=== PATIENT | male | born 1965 | race Caucasian/White ===

== ENCOUNTER 2016-08-18 13:39 | Emergency (ER) | payer OTHER ==
[~2016-08-18] VITALS: Ht 182.9 cm; Wt 123.4 kg
[~2016-08-18 13:39] MED LIST: ASPI-875 PO; ATEN25TA PO; DICY20TA57 PO; FEBU40TA PO; MAGN400C PO; NIAC400C2 PO; ONDAN4ODT PO; PNT40TEC PO; TRM50T PO; WARF7.5T PO; WRF10T PO
[2016-08-18 13:59] LABS: BILIRUBIN,URINE NEGATIVE (NEGATIVE); KETONES,URINE NEGATIVE (NEGATIVE); LEUKOCYTE ESTERASE ,URINE 1+ (NEGATIVE); NITRITE,URINE NEGATIVE (NEGATIVE); PH,URINE 7 (5-9); PROTEIN,URINE 3+ (NEGATIVE); UROBILINOGEN,URINE NORMAL (NORMAL)
[2016-08-18 14:01] LABS: BASOPHILS % (AUTO) 0 % (0-10); EOSINOPHILS # (AUTO) 0.1 10^3/uL (0.0-0.3); EOSINOPHILS % (AUTO) 2 % (0-10); LYMPHOCYTES # (AUTO) 1.9 X 10^3 (1.0-4.0); LYMPHOCYTES % (AUTO) 34 % (12-44); MEAN CORPUSCULAR HEMOGLOBIN 33 PG (25-34); MEAN CORPUSCULAR HGB CONC 37 G/DL (32-36); MEAN CORPUSCULAR VOLUME 89 FL (80-99); MEAN PLATELET VOLUME 10.4 FL (7.4-10.4); MONOCYTES # (AUTO) 0.5 X 10^3 (0.0-1.0); MONOCYTES % (AUTO) 9 % (0-12); NEUTROPHILS # (AUTO) 3.1 X 10^3 (1.8-7.8); NEUTROPHILS % (AUTO) 55 % (42-75); PLATELET COUNT 167 10^3/uL (130-400); RED BLOOD COUNT 4.91 10^6/uL (4.35-5.85); RED CELL DISTRIBUTION WIDTH 12.8 % (10.0-14.5); WHITE BLOOD COUNT 5.6 10^3/uL (4.3-11.0)
[2016-08-18 14:08] LABS: WBC,URINE 0-2 /HPF
[2016-08-18 14:18] LABS: ALBUMIN 4.3 G/DL (3.2-4.5); BILIRUBIN,TOTAL 1.6 MG/DL (0.1-1.0); CALCIUM 8.9 MG/DL (8.5-10.1); CREATININE SERUM 1.28 MG/DL (0.60-1.30); TOTAL PROTEIN 6.7 G/DL (6.4-8.2)
--- NOTE | 2016-08-18 14:28 | Diagnostic Imaging Report ---
PROCEDURE: CT urinary tract, rule out kidney stone. TECHNIQUE: Multiple contiguous axial images were obtained through the abdomen and pelvis without the use of intravenous contrast. INDICATION: Bilateral flank pain with hematuria. COMPARISON: 07/08/2012. FINDINGS: Lung bases are clear. There is a 5 mm calculus in the lower pole calyx of the right kidney. There is also a 3 mm calculus in the ureter at the UPJ causing mild hydronephrosis. The left kidney shows a large cyst off the upper pole which was present previously. No calculi are present. No hydronephrosis is seen on the left. The bladder appears normal. Bladder is decompressed. No calculi are demonstrated in the bladder. The liver appears normal. Gallbladder is absent. Bile ducts are not dilated. The pancreas and spleen are normal. Adrenal glands are normal. Aorta shows no evidence of atherosclerotic disease or aneurysm. The stomach and small bowel are not distended. The colon shows very little stool or gas present. There are scattered diverticula with no evidence of diverticulitis. There is no free air free fluid. IMPRESSION: 1. There is a 3 mm calculus causing mild hydronephrosis of the right kidney at the UPJ. There is also a 5 mm calculus in lower pole calyx of the right kidney. 2. Cyst off of the upper pole of the left kidney measuring 4.5 cm which was present on previous study. No calculi or hydronephrosis on the left. 3. Diverticulosis without evidence of diverticulitis. Dictated by: Dictated on workstation # [id number]
[2016-08-18 14:30] LABS: INR 5.4 (0.8-1.4); PROTHROMBIN TIME PATIENT 49.9 SEC (12.2-14.7)
--- NOTE | 2016-08-18 14:41 | Diagnostic Imaging Report ---
INDICATION: KUB. Comparison: Concurrent CT scan from the same day is reviewed. FINDINGS: There are right flank calcifications measuring 4 mm medial to the renal silhouette probably correlating with the UPJ stone seen on CT scan and 4 mm lower pole right kidney stone seen. The left kidney demonstrate no stones. No other urinary tract stones identified in the mid to lower abdomen. IMPRESSION: 4 mm right UPJ and 4 mm lower pole right kidney stones. Dictated by: Dictated on workstation # [id number]
--- NOTE | 2016-08-18 15:13 | ED GU-Male ---
General Chief Complaint: -Male Stated Complaint: BLOOD IN URINE Nursing Triage Note: PT HAS CLEO BLOOD IN URINE. STARTED LAST PM, DENIES PAIN AT THIS X Source: patient History of Present Illness Time seen by provider: 13:50 Initial Comments PT ARRIVES VIA POV FROM [facility] PT HAS HAD HEMATURIA SINCE LAST PM C/O DIFFUSE LOWER ABDOMINAL PRESSURE, BUT NO DIFFICULTY URINATING NO FEVER NO NAUSEA/VOMITING NO BACK PAIN PT IS ON COUMADIN FOR VALVULAR HEART DISEASE. HAS NOT HAD PROTIME CHECKED IN A MONTH NO BRUISING ANYWHERE OR BLEEDING FROM GUMS OR BLACK/BLOODY/TARRY STOOLS. PT DOES HAVE A HISTORY OF KIDNEY STONES PCP: DR. ABREU UROLOGY: DR. QUINTANA FISH PEDDLER: DR. LEE--HAS NOT SEEN RECENTLY Allergies and Home Medications Allergies Coded Allergies: No Known Drug Allergies (Unverified , 11/25/08) Home Medications Aspirin 81 Mg Tablet.dr 81 MG PO DAILY (Reported) Atenolol 25 Mg Tablet 1 EACH PO DAILY (Reported) Febuxostat 40 Mg Tablet 40 MG PO DAILY (Reported) Hydrocodone/Acetaminophen 1 Each Tablet #20 1 EACH PO Q4H Prescribed by: TRACEY QUINONES on 08/18/161517 Magnesium Oxide 400 Mg Capsule 400 MG PO DAILY (Reported) Niacin 400 Mg Capsule.sa 400 MG PO DAILY (Reported) Nitrofurantoin Monohyd/M-Cryst 100 Mg Capsule #20 100 MG PO BID Prescribed by: TRACEY QUINONES on 08/18/161517 Tamsulosin HCl 0.4 Mg Cap #10 0.4 MG PO DAILY Prescribed by: TRACEY QUINONES on 08/18/161517 Warfarin Sod 7.5 Mg Tablet 1 EACH PO through Wed (Reported) Warfarin Sod 10 Mg Tab 10 MG PO Mondays (Reported) Constitutional: no symptoms reportedNo chills, No diaphoresis, No dizziness, No fever, No malaise, No weakness Respiratory: no symptoms reported Cardiovascular: no symptoms reported Gastrointestinal: see HPI abdominal painNo nausea, No vomiting Genitourinary: see HPIdenies burning, denies dysuria, denies frequency, denies flank pain, hematuriadenies pain, denies urgency Musculoskeletal: no symptoms reportedNo back pain Skin: no symptoms reported Psychiatric/Neurological: No Symptoms Reported Endocrine: No Symptoms Reported Hematologic/Lymphatic: See HPI Past Wwcecsn-Afuzfx-Cuxubu Hx Patient Social History Alcohol Use: Denies Use Recreational Drug Use: No Smoking Status: Never a Smoker Type Used: Cigarettes Recent Foreign Travel: No Contact w/Someone Who Travel: No Recent Infectious Disease Expo: No Immunizations Up To Date Date of Influenza Vaccine: Feb 29, 2016 Surgeries HX Surgeries: Yes Surgeries: Valve Replacement Respiratory Hx Respiratory Disorders: Yes Respiratory Disorders: Sleep Apnea Cardiovascular Hx Cardiac Disorders: Yes (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) Cardiac Disorders: Hypertension, Valvular Heart Disease Neurological Hx Neurological Disorders: No Reproductive System Hx Reproductive Disorders: No Sexually Transmitted Disease: No HIV/AIDS: No Genitourinary Hx Genitourinary Disorders: Yes (stones) Genitourinary Disorders: Kidney Stones Gastrointestinal Hx Gastrointestinal Disorders: Yes Gastrointestinal Disorders: Gall Bladder Disease Musculoskeletal Hx Musculoskeletal Disorders: Yes Musculoskeletal Disorders: Gout Endocrine Hx Endocrine Disorders: No HEENT HX ENT Disorders: No Cancer Hx Cancer: No Psychosocial Hx Psychiatric Problems: No Integumentary HX Skin/Integumentary Disorder: No Blood Transfusions Hx Blood Disorders: No Physical Exam Vital Signs Vital Sign - Last 12Hours 08/18/16 13:45 Temp 97.9 Pulse 60 Resp 18 B/P 125/80 Pulse Ox 94 Capillary Refill : Less Than 3 Seconds General Appearance: WD/WN no apparent distress HEENT: PERRL/EOMI Neck: normal inspection Cardiovascular: normal peripheral pulses regular rate, rhythm no edema systolic murmur (06/05) Respiratory: normal breath sounds no respiratory distress no accessory muscle use Gastrointestinal: normal bowel sounds non tender soft no organomegaly Back: no CVA tenderness Extremities: normal inspection 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 no motor/sensory deficits alert normal mood/affect oriented x 3 Skin: normal color warm/dryNo ecchymosis Focused Exam Lactic Acid Level Laboratory Tests Test 08/18/16 13:45 Alanine Aminotransferase (ALT/SGPT) 28U/L (0-55) Albumin 4.3G/DL (3.2-4.5) Alkaline Phosphatase 58U/L (40-136) Anion Gap 9MMOL/L (5-14) Aspartate Amino Transf (AST/SGOT) 26U/L (5-34) BUN/Creatinine Ratio 13 Blood Urea Nitrogen 16MG/DL (7-18) Calcium Level 8.9MG/DL (8.5-10.1) Carbon Dioxide Level 22MMOL/L (21-32) Chloride Level 109MMOL/L (98-107) H Creatinine 1.28MG/DL (0.60-1.30) Estimat Glomerular Filtration Rate 59 Glucose Level 112MG/DL (70-105) H Potassium Level 4.0MMOL/L (3.6-5.0) Sodium Level 140MMOL/L (135-145) Total Bilirubin 1.6MG/DL (0.1-1.0) H Total Protein 6.7G/DL (6.4-8.2) Progress/Results/Core Measures Results/Orders Lab Results Laboratory Tests Test 08/18/16 13:45 08/18/16 14:05 Range/Units Alanine Aminotransferase (ALT/SGPT) 28 0-55 U/L Albumin 4.3 3.2-4.5 G/DL Alkaline Phosphatase 58 40-136 U/L Anion Gap 9 5-14 MMOL/L Aspartate Amino Transf (AST/SGOT) 26 5-34 U/L BUN/Creatinine Ratio 13 Basophils # (Auto) 0.0 0.0-0.1 10^3/uL Basophils (%) (Auto) 0 0-10 % Blood Urea Nitrogen 16 7-18 MG/DL Calcium Level 8.9 8.5-10.1 MG/DL Carbon Dioxide Level 22 21-32 MMOL/L Chloride Level 109 H 98-107 MMOL/L Creatinine 1.28 0.60-1.30 MG/DL Eosinophils # (Auto) 0.1 0.0-0.3 10^3/uL Eosinophils (%) (Auto) 2 0-10 % Estimat Glomerular Filtration Rate 59 Glucose Level 112 H 70-105 MG/DL Hematocrit 44 40-54 % Hemoglobin 16.1 13.3-17.7 G/DL Lymphocytes # (Auto) 1.9 1.0-4.0 X 10^3 Lymphocytes (%) (Auto) 34 12-44 % Mean Corpuscular Hemoglobin 33 25-34 PG Mean Corpuscular Hemoglobin Concent 37 H 32-36 G/DL Mean Corpuscular Volume 89 80-99 FL Mean Platelet Volume 10.4 7.4-10.4 FL Monocytes # (Auto) 0.5 0.0-1.0 X 10^3 Monocytes (%) (Auto) 9 0-12 % Neutrophils # (Auto) 3.1 1.8-7.8 X 10^3 Neutrophils (%) (Auto) 55 42-75 % Platelet Count 167 130-400 10^3/uL Potassium Level 4.0 3.6-5.0 MMOL/L Red Blood Count 4.91 4.35-5.85 10^6/uL Red Cell Distribution Width 12.8 10.0-14.5 % Sodium Level 140 135-145 MMOL/L Total Bilirubin 1.6 H 0.1-1.0 MG/DL Total Protein 6.7 6.4-8.2 G/DL Urine Bacteria NEGATIVE /HPF Urine Bilirubin NEGATIVE NEGATIVE Urine Casts NONE /LPF Urine Clarity BLOODY H Urine Color RED H Urine Crystals NONE /LPF Urine Culture Indicated NO Urine Glucose (UA) NEGATIVE NEGATIVE Urine Ketones NEGATIVE NEGATIVE Urine Leukocyte Esterase 1+ H NEGATIVE Urine Mucus NEGATIVE /LPF Urine Nitrite NEGATIVE NEGATIVE Urine Protein 3+ H NEGATIVE Urine RBC TNTC H /HPF Urine RBC (Auto) 5+ H NEGATIVE Urine Specific [place] 1.020 1.016-1.022 Urine Squamous Epithelial Cells NONE /HPF Urine Urobilinogen NORMAL NORMAL MG/DL Urine WBC 0-2 /HPF Urine pH 7 5-9 White Blood Count 5.6 4.3-11.0 10^3/uL Activated Partial Thromboplast Time 56 H 24-35 SEC INR Comment 5.4 *H 0.8-1.4 Prothrombin Time 49.9 *H 12.2-14.7 SEC My Orders Orders-TRACEY QUINONES DO Saline Lock/Iv-Start (08/18/16 13:52) Cbc With Automated Diff (08/18/16 13:52) Comprehensive Metabolic Panel (08/18/16 13:52) Protime With Inr (08/18/16 13:52) Partial Thromboplastin Time (08/18/16 13:52) Ua Culture If Indicated (08/18/16 13:52) Abdomen/Kub 1view (08/18/16 13:52) Ct Abd/Pelvis Wo(Kidney Stone) (08/18/16 13:52) Alfuzosin Tablet (Uroxatral Tablet) (08/18/16 15:30) Ketorolac Injection (Toradol Injection) (08/18/16 15:30) Tramadol Tablet (Ultram Tablet) (08/18/16 15:21) Medications Given in ED Current Medications Medications Dose Ordered Sig/Arcenio Route Start Time Stop Time Status Last Admin Dose Admin Ketorolac Tromethamine 30 mg ONCE ONCE IVP 08/18/16 15:30 08/18/16 15:31 DC 08/18/16 15:22 30 MG Vital Signs/I&O Vital Sign - Last 12Hours 08/18/16 08/18/16 13:45 15:43 Temp 97.9 Pulse 60 72 Resp 18 20 B/P 125/80 Pulse Ox 94 99 Blood Pressure Mean: 95 Progress Note : Progress Note PT BEGAN TO C/O MILD RIGHT FLANK PAIN --GIVEN TORADOL, PAIN EASED. Diagnostic Imaging Comments CT ABDOMEN/PELVIS--3 MM STONE RIGHT UPJ WITH MILD HYDRONEPHROSIS, 5 MM LOWER POLE OF RIGHT KIDNEY. LEFT RENAL CYST-UNCHANGED, DIVERTICULAR DISEASE--PER RADIOLOGIST REPORT @ 1434 Reviewed: Reviewed by Me Departure Communication Progress Notes 1440--SPOKE WITH DR. QUINTANA, HE WILL SEE PT ON Wednesday08/24/16 AT 1:[address] ABREU FOR MANAGEMENT OF COUMADIN 1443--ATTEMPTING TO CONTACT DR. ABREU. MESSAGE LEFT ON CELL. HE IS NOT IN OFFICE AT THIS TIME. 1504--CALLED DR. LEE'S OFFICE, HE IS NOT IN OFFICE 1505--CALLED DR. ABREU'S OFFICE, APPOINTMENT MADE FOR TOMORROW AT 11:00 AM 1515--SPOKE WITH DR. ABREU. HE WILL SEE PT TOMORROW SCHEDULED. Impression Impression: Primary Impression: Right ureteral calculus Additional Impressions: Excessive anticoagulation Gross hematuria Disposition: HOME, SELF-CARE Condition: Improved Departure-Patient Inst. Referrals: CARMEN ABREU DO (PCP/Family) Primary Care Physician JUDY QUINTANA MD Patient Instructions: Anti-Clotting Medicines: Warfarin (Coumadin), Kidney Stones (DC) Add. Discharge Instructions: LOTS OF CLEAR LIQUIDS HOLD COUMADIN FOLLOW UP WITH DR. ABREU TOMORROW AT 11:00--CALL TO VERIFY TIME FOLLOW UP WITH DR. QUINTANA ON Wednesday08/24/16 AT 1:00 RETURN TO ER IF SYMPTOMS WORSEN All discharge instructions reviewed with patient and/or family. Voiced understanding. Scripts Hydrocodone/Acetaminophen (Vicodin Es 7.5-300 mg Tablet)1 Each Tablet1 Each PO Q4H Pain #20 TAB Prov:TRACEY QUINONES DO 08/18/16 Tamsulosin HCl (Flomax)0.4 Mg Cap0.4 Mg PO DAILY #10 CAP Prov:TRACEY QUINONES DO 08/18/16 Nitrofurantoin Monohyd/M-Cryst (Macrobid 100 mg Capsule)100 Mg [id number] Mg PO BID #20 CAP Prov:TRACEY QUINONES DO 08/18/16 TRACEY QUINONES DO Aug 18, 2016 15:13
[2016-08-18] MEDS ORDERED: TAMS0.4C98 PO (15:18)
[2016-08-18] MEDS ORDERED: NITR-65 PO (15:18)
[2016-08-18] MEDS ORDERED: HYDR-3456 PO (15:18)
[2016-08-18] MEDS ORDERED: ALFUZOSIN HCL 10 MG TAB (UROXATRAL) PO SCH (15:30)
[2016-08-18] MEDS ORDERED: KETOROLAC 30 MG/ML VIAL IVP ONE (15:30)
[2016-08-18 15:43] VITALS: BP 118/78
== END 2016-08-18 15:43 | disposition home or self-care (01) ==
LOC: EDUNIT# 13:39 → ER 13:40
DX: N20.2 Calculus of kidney with calculus of ureter (principal); N28.1 Cyst of kidney, acquired; R31.0 Gross hematuria; R79.1 Abnormal coagulation profile; K57.30 Diverticulosis of large intestine without perforation or abscess without bleeding; I10 Essential (primary) hypertension; Z79.01 Long term (current) use of anticoagulants; Z79.82 Long term (current) use of aspirin; Z79.899 Other long term (current) drug therapy
CPT/HCPCS: 36415; 74000; 74176; 80053; 81000; 85025; 85610; 85730; 96374

== ENCOUNTER → 2016-08-23 | Outpatient (CLI) | payer OTHER ==
[~2016-08-23] MED LIST changes: +ALPR0.5T7 PO; +FENO45CA2 PO; +HYDR-3456 PO; +HYDR-3875 PO; +LEVO250T11 PO; +NITR-65 PO; +PHEN-640 PO; +TAMS0.4C98 PO
[2016-08-23 12:23] LABS: INR 1.2 (0.8-1.4)
== END ==
LOC: LAB 11:57
PROVIDERS: ATTEND Internal Medicine
DX: R79.1 Abnormal coagulation profile (principal)
CPT/HCPCS: 36415; 85610

== ENCOUNTER → 2016-08-24 | Outpatient (CLI) | payer OTHER ==
--- NOTE | 2016-08-24 12:53 | Diagnostic Imaging Report ---
EXAMINATION: KUB. INDICATION: Right kidney stones. COMPARISON: 08/24/2016. FINDINGS: There is a right flank calcification measuring 6 mm, compatible with a right kidney stone. The previously seen adjacent calcification more medially in the proximal ureter is not seen and, instead, a 5 mm calcification in the right pelvis is noted suggesting migration into the distal ureter near the ureterovesical junction. No left ureteric or left kidney calcification is identified. IMPRESSION: 1. There is a 6 mm lower pole right kidney stone. 2. Suggestion of migration of a 5 mm stone into the right UVJ. Dictated by: Dictated on workstation # [id number]
== END ==
LOC: RAD 11:41
PROVIDERS: ATTEND Internal Medicine
DX: N20.1 Calculus of ureter (principal)
CPT/HCPCS: 74000

== ENCOUNTER 2016-08-25 13:09 | Outpatient (CLI) | payer OTHER ==
[~2016-08-25] VITALS: Ht 182.9 cm; Wt 126.8 kg
[~2016-08-25 13:09] MED LIST changes: -ALPR0.5T7 PO; -FENO45CA2 PO; -HYDR-3875 PO; -LEVO250T11 PO; -PHEN-640 PO
[2016-08-25] MEDS ORDERED: ALPR0.5T7 PO (13:26)
[2016-08-25] MEDS ORDERED: FENO45CA2 PO (13:26)
[2016-08-25 13:30] VITALS: BP 123/79
[2016-08-26] MEDS ORDERED: LEVO250T11 PO (15:08)
[2016-08-26] MEDS ORDERED: PHEN-640 PO (15:08)
[2016-08-26] MEDS ORDERED: HYDR-3875 PO (15:08)
== END 2016-08-25 14:12 | disposition home or self-care (01) ==
LOC: PREOP 13:09
PROVIDERS: ATTEND Urology
DX: Z01.818 Encounter for other preprocedural examination (principal); Z11.2 Encounter for screening for other bacterial diseases; N20.0 Calculus of kidney; N20.1 Calculus of ureter
CPT/HCPCS: 87081

== ENCOUNTER 2016-08-26 08:31 | Day surgery (SDC) | payer OTHER ==
[~2016-08-26] VITALS: Ht 182.9 cm; Wt 126.8 kg
[2016-08-26 08:30] VITALS: BP 126/83
[~2016-08-26 08:31] MED LIST changes: +ALPR0.5T7 PO; +FENO45CA2 PO
[2016-08-26 09:15] LABS: URIC ACID 7.9 MG/DL (2.6-7.2)
--- NOTE | 2016-08-26 09:23 | Diagnostic Imaging Report ---
KUB. INDICATION: Lithotripsy. COMPARISON: 08/24/16. FINDINGS: In the right flank, there is a 6 mm calcification presumably a stone. In the right side of the pelvis, the calcification was seen previously presumed to be in the distal right ureter is not identified on the current exam. No definite left sided stones. IMPRESSION: 1. The previously seen distal left pelvic calcification presumably in the distal right ureter is not identified, possibly passed. Correlate clinically. 2. A 6 mm right kidney stone. Dictated by: Dictated on workstation # [id number]
[2016-08-26] MEDS ORDERED: GENTAMICIN IVPB 80 MG/50 ML 50 ML IV ONE (09:34)
[2016-08-26] MEDS ORDERED: NS IV ONE (09:45)
[2016-08-26] MEDS ORDERED: AMPICILLIN 2 GM/NS 50 ML IVPB IV ONE ×2 (09:45)
[2016-08-26] MEDS ORDERED: GENTAMICIN IV ONE (09:45)
[2016-08-26] MEDS: LACTATED RINGERS 1,000 ML IV PRN ×2 (09:55→12:32)
[2016-08-26] MEDS ORDERED: LACTATED RINGERS 1,000 ML IV PRN (10:38)
--- NOTE | 2016-08-26 10:59 | Progress Note-Pre Operative ---
Pre-Operative Progress Note H&P Reviewed The H&P was reviewed, patient examined and no changes noted. Date H&P Reviewed: Aug 26, 2016 Time H&P Reviewed: 10:59 Pre-Operative Diagnosis: RT URETERAL AND RT RENAL STONES JUDY QUINTANA MD Aug 26, 2016 10:59 am
[2016-08-26] MEDS ORDERED: DEXAMETHASONE PF 10 MG/ML (DECADRON) VIAL ONE (11:36)
[2016-08-26] MEDS ORDERED: proPOfol 200 MG/20 ML (DIPRIVAN) VIAL IV ONE ×2 (11:36→12:36)
[2016-08-26] MEDS ORDERED: fentaNYL INJECTION 100 MCG/2 ML AMP ONE (11:36)
[2016-08-26] MEDS ORDERED: LIDOCAINE PF 2% 10 ML (XYLOCAINE) AMP ONE (11:36)
[2016-08-26] MEDS ORDERED: ONDANSETRON 4 MG/2 ML (SDV) Z0FRAN ONE (11:36)
[2016-08-26] MEDS ORDERED: MIDAZOLAM 2 MG/2 ML (VERSED) VIAL ONE (11:36)
[2016-08-26] MEDS ORDERED: ROCURONIUM 50 MG/5 ML (ZEMURON) VIAL IV ONE (11:36)
[2016-08-26] MEDS ORDERED: LACTATED RINGERS 1,000 ML IV ONE ×2 (11:36→12:36)
[2016-08-26] MEDS ORDERED: SEVOFLURANE (ULTANE) 15 ML INHAL SOLN ONE ×2 (11:36→13:42)
--- NOTE | 2016-08-26 12:00 | Progress Note-Post Operative ---
Post-Operative Progess Note Surgeon (s)/Dining Car Waiter/Waitress (s) Surgeon JUDY QUINTANA MD Dining Car Waiter/Waitress: N/A Pre-Operative Diagnosis RT URETERAL AND RT RENAL STONES Post-Operative Diagnosis SAME Post-Op Procedure Note Date of Procedure: Aug 26, 2016 Name of Procedure Performed: CYSTO, RT URETEROSCOPY WITH STONE LITHO, AND RT ESWL Description of the Procedure: ABOVE Findings of the Procedure RT URETERAL AND RENAL STONES Anesthesia Type GENERAL Estimated blood loss (mL): N/A Specimen(s) collected/removed N/A JUDY QUINTANA MD Aug 26, 2016 12:00 pm
--- NOTE | 2016-08-26 12:02 | Discharge Inst-Urology ---
Discharge Inst-Urology Discharge Medications New, Converted, or Re-newed RX: RX on Chart Patient Instructions/Follow Up Plan Please make appointment to been seen in office in 3 weeks. KUB PRIOR TO IT KUB ON WAY HOME POST ESWL INSTRUCTIONS IN ONE WEEK, IF DOING WELL AND NO BLEEDING, MAY RESUME WARFARIN Increase oral fluids for 48 hours and then as needed. Diet and Activity as tolerated. If questions or concerns contact your physician Or seek help at emergency department. JUDY QUINTANA MD Aug 26, 2016 12:02 pm
[2016-08-26] MEDS ORDERED: ESMOLOL 100 MG/10 ML (BREVIBLOC) VIAL ONE (12:27)
[2016-08-26 13:36] LABS: CALCIUM PARA THYROID HORMONE 9.2 mg/dL (8.5-10.5)
[2016-08-26] MEDS ORDERED: FUROSEMIDE 40 MG/4 ML INJ (LASIX) ONE (13:42)
[2016-08-26] MEDS ORDERED: KETOROLAC 30 MG/ML VIAL ONE (13:42)
[2016-08-26] MEDS ORDERED: NEOSTIGMINE (BLOXIVERZ ) 1 MG/1ML 10 ML VIAL ONE (13:42)
[2016-08-26] MEDS ORDERED: GLYCOPYRROLATE 0.2 MG/ML (ROBINUL) 2 ML VIAL ONE (13:42)
[2016-08-26] MEDS ORDERED: MEPERIDINE (DEMEROL) INJ 50 MG/ML IVP PRN (14:00)
[2016-08-26] MEDS ORDERED: ONDANSETRON 4 MG/2 ML (SDV) Z0FRAN IVP PRN (14:00)
[2016-08-26] MEDS ORDERED: morphine INJ 10 MG/ML 1ML (SYR OR VIAL) IVP PRN (14:00)
[2016-08-26 14:20] VITALS: BP 108/64
[2016-08-26 14:55] VITALS: BP 112/70
[2016-08-26] MEDS ORDERED: PHEN-640 PO (15:08)
[2016-08-26] MEDS ORDERED: HYDR-3875 PO (15:08)
[2016-08-26] MEDS ORDERED: LEVO250T11 PO (15:08)
--- NOTE | 2016-08-26 15:26 | Diagnostic Imaging Report ---
KUB. INDICATION: Post lithotripsy. FINDINGS: Right flank calcification is seen measuring 5 mm. There is a no definite right ureteric stone and evidence of left-sided stones. IMPRESSION: 5 mm right kidney stone seen. Dictated by: Dictated on workstation # [id number]
[2016-08-26 15:30] VITALS: BP 118/74
[2016-08-26 15:35] VITALS: BP 118/74
--- NOTE | 2016-08-27 13:12 | OPERATIVE REPORT ---
PROCEDURE PHYSICIAN: JUDY QUINTANA DATE OF PROCEDURE: 08/26/2016 PREOPERATIVE DIAGNOSIS: Right distal ureteral and right renal stones. POSTOPERATIVE DIAGNOSIS: Right distal ureteral and right renal stones. OPERATION PERFORMED: 1. Cystoscopy. 2. Right ureteroscopy with stone lithotripsy. 3. Right ESWL. SURGEON: Lele. ANESTHESIA: General. COMPLICATIONS: None. PROCEDURE: Under satisfactory general anesthesia, the patient in lithotomy position on the cystoscopy table, the genitalia were prepped and draped in usual sterile fashion. A 23-Yemeni cystoscope was introduced under vision. The anterior urethra was normal. The prostate was nonobstructing but there was a median bar. The bladder was entered, was essentially normal. No foreign body, bladder tumor, stone visualized. Ureteric orifice normal in shape, site and configuration with clear efflux, sluggish on the right side. Using the Foroblique lens, I dilated the right ureteral orifice, intramural portion to a 6.9-Yemeni semirigid ureteroscope, visualized the stone broke it up completely with lithoclast. I injected contrast to make sure there is no harm to the ureter. Did not inject the contrast all the way up to the kidney, so I don't mask a stone in the kidney. I removed the ureteroscope. There was complete emptying of the ureter, again no filling defects. The bladder was evacuated and cystoscope was removed. The patient tolerated the procedure and anesthesia well and was sent to the ESWL bed supine. We had a hard time to localize the right renal stone because of the size of the stone and the size of the patient however, we were able to finally localize it and delivered 1000 shocks at KV of 5, we could not see the stone anymore. The patient received 30 mg of Toradol and 40 mg of Lasix at the end of the procedure. He tolerated the procedure and anesthesia well and was sent to recovery room in stable condition. Job ID: [id number] Dictated Date: 08/26/2016 13:12:16 Cane Weigher Helper Date: 08/27/2016 13:00:45 / xochitl
== END 2016-08-26 15:35 | disposition home or self-care (01) ==
LOC: DELPENDDIS → SDC 08:31
PROVIDERS: ATTEND Urology
DX: N20.1 Calculus of ureter (principal); N20.0 Calculus of kidney; Z12.5 Encounter for screening for malignant neoplasm of prostate; Z11.2 Encounter for screening for other bacterial diseases
CPT/HCPCS: 36415; 74000; 83970; 84100; 84153; 84550; 87081

== ENCOUNTER 2016-09-16 15:56 | Outpatient (RCR) | payer OTHER ==
[2016-09-25 20:38] LABS: STONE RISK AMMONIUM 38 mEq/24hr (14-62); STONE RISK CA OXALATE 3.72 (< 2.00); STONE RISK CALCIUM 330 mg/day (< 250); STONE RISK CITRATE 823 mg/day (> 320); STONE RISK CREATININE 2135 mg/day (800-2000); STONE RISK MAGNESIUM 44 mg/day (> 60); STONE RISK OXALATE 35 mg/day (< 45); STONE RISK PH 6.1 (5.5-7.0); STONE RISK PHOSPHOROUS 975 mg/day (< 1100); STONE RISK POTASSIUM 34 mEq/24hr (19-135); STONE RISK SODIUM 161 mEq/24hr (< 200); STONE RISK SODIUM URATES 1.26 (< 2.00); STONE RISK STRUVITE 0.66 (< 75.00); STONE RISK SULFITE 18 mmol/day (< 30); STONE RISK TOTAL VOLUME 1.26 L/day (> 2.00); STONE RISK URIC ACID 178 mg/day (< 700); STONE RISK URIC ACID SAT 0.47 (< 2.00)
== END 2016-12-15 | disposition home or self-care (01) ==
LOC: LAB 15:56
PROVIDERS: ATTEND Urology
DX: N20.9 Urinary calculus, unspecified (principal)
CPT/HCPCS: 36415; 82140; 82340; 82507; 82570; 83735; 83945; 83986; 84105; 84133; 84300; 84392; 84560

== ENCOUNTER → 2016-09-16 | Outpatient (CLI) | payer OTHER ==
[~2016-09-16] MED LIST changes: +HYDR-3875 PO; +LEVO250T11 PO; +PHEN-640 PO
--- NOTE | 2016-09-16 16:14 | Diagnostic Imaging Report ---
EXAMINATION: KUB. INDICATION: Right renal stone. FINDINGS: Right flank calcification is seen near the lower pole measuring 6 mm in size. No ureteric or left kidney stone is seen. IMPRESSION: Right flank 6 mm calcification suggestive of renal stone is seen. Dictated by: Dictated on workstation # [id number]
== END ==
LOC: RAD 14:59
PROVIDERS: ATTEND Urology
DX: N20.0 Calculus of kidney (principal); Z98.890 Other specified postprocedural states
CPT/HCPCS: 74000

== ENCOUNTER → 2016-11-23 | Outpatient (CLI) | payer OTHER ==
--- NOTE | 2016-11-23 13:40 | Diagnostic Imaging Report ---
Hepatic ultrasound. INDICATION: Elevated bilirubin. Fatigue. Back pain. FINDINGS: The pancreas is obscured by bowel gas. The liver is hyperechoic and attenuates the ultrasound beam suggestive of fatty infiltration. The deep and superior aspects of the liver are not well seen. Hepatopetal flow in the portal vein is noted. There is no definitive mass identified. The CBD is obscured. The gallbladder has been removed. The right kidney is 12.3 cm in length with no hydronephrosis or focal lesion. There is no fluid collection in the upper right abdomen. IMPRESSION: Suggestion of hepatic steatosis. The deep and superior portions of the liver are not well seen on this exam. Dictated by: Dictated on workstation # [id number]
== END ==
LOC: RAD 06:41
PROVIDERS: ATTEND Nurse Practitioner Family
DX: E80.7 Disorder of bilirubin metabolism, unspecified (principal); R79.0 Abnormal level of blood mineral
CPT/HCPCS: 76705

== ENCOUNTER 2018-02-26 11:58 | Emergency (ER) | payer OTHER ==
[~2018-02-26] VITALS: Ht 182.9 cm; Wt 123.4 kg
[2018-02-26 12:38] LABS: BASOPHILS % (AUTO) 0 % (0-10); EOSINOPHILS # (AUTO) 0.1 10^3/uL (0.0-0.3); EOSINOPHILS % (AUTO) 2 % (0-10); HEMATOCRIT 45 % (40-54); HEMOGLOBIN 16.4 G/DL (13.3-17.7); LYMPHOCYTES # (AUTO) 1.6 X 10^3 (1.0-4.0); LYMPHOCYTES % (AUTO) 23 % (12-44); MEAN CORPUSCULAR HEMOGLOBIN 32 PG (25-34); MEAN CORPUSCULAR HGB CONC 36 G/DL (32-36); MEAN CORPUSCULAR VOLUME 89 FL (80-99); MONOCYTES # (AUTO) 0.7 X 10^3 (0.0-1.0); MONOCYTES % (AUTO) 10 % (0-12); NEUTROPHILS # (AUTO) 4.7 X 10^3 (1.8-7.8); NEUTROPHILS % (AUTO) 66 % (42-75); PLATELET COUNT 169 10^3/uL (130-400); RED BLOOD COUNT 5.12 10^6/uL (4.35-5.85); RED CELL DISTRIBUTION WIDTH 13.1 % (10.0-14.5); WHITE BLOOD COUNT 7.2 10^3/uL (4.3-11.0)
[2018-02-26 12:40] LABS: BILIRUBIN,URINE NEGATIVE (NEGATIVE); CLARITY,URINE CLEAR; COLOR,URINE YELLOW; GLUCOSE, URINE (UA) NEGATIVE (NEGATIVE); KETONES,URINE 1+ (NEGATIVE); LEUKOCYTE ESTERASE ,URINE 1+ (NEGATIVE); NITRITE,URINE NEGATIVE (NEGATIVE); PH,URINE 6 (5-9); PROTEIN,URINE NEGATIVE (NEGATIVE); UROBILINOGEN,URINE 1 MG/DL (NORMAL)
[2018-02-26 12:44] LABS: INR 1.6 (0.8-1.4); PROTHROMBIN TIME PATIENT 19.5 SEC (12.2-14.7)
[2018-02-26 12:50] LABS: ALBUMIN 4.4 GM/DL (3.2-4.5); BILIRUBIN,TOTAL 3.5 MG/DL (0.1-1.0); CALCIUM 9.7 MG/DL (8.5-10.1); CREATININE SERUM 2.08 MG/DL (0.60-1.30); POTASSIUM 3.9 MMOL/L (3.6-5.0); TOTAL PROTEIN 7.2 GM/DL (6.4-8.2)
[2018-02-26 12:59] LABS: BACTERIA,URINE NEGATIVE /HPF
[2018-02-26] MEDS ORDERED: NS IV 1000 ML 1,000 ML IV ONE ×2 (13:09)
--- NOTE | 2018-02-26 13:56 | ED Back Pain ---
General Chief Complaint: Back Problems Stated Complaint: LOW BACK PAIN/POSS KIDNEY STONES Nursing Triage Note: PT AMB TO ROOM #4 W/O DIFFICULTY WITH CO RT FLANK PAIN THAT BEGAN 02/24/18. REPORTS PAIN HAS BEEN STEADILY INCREASING FOR PAST 3 DAYS. REPORTS HX OF KIDNEY STONES THAT REQUIRED SURGICAL INTERVENTION AND STATES "THIS PAIN FEELS SIMILAR. " DENIES FEVER OR CHILLS. Nursing Sepsis Screen: No Definite Risk Source of Information: Patient, Old Records Exam Limitations: No Limitations History of Present Illness Date Seen by Provider: Feb 26, 2018 Time Seen by Provider: 12:12 Initial Comments This 52-year-old gentleman presents to the emergency room with pain in the right flank and lower back sometimes radiates with sharp pain down to the right inguinal area. He has history of ureteral and renal stones and states this feels very similar. Symptoms have been present for about 3 days. He denies any dysuria, hematuria, or fever. His abdomen is nontender. He is on warfarin due to prosthetic aortic valve. Allergies and Home Medications Allergies Coded Allergies: No Known Drug Allergies (Unverified , 08/25/16) Home Medications Alprazolam 0.5 Mg Tablet, 0.5 MG PO DAILY, (Reported) Atenolol 25 Mg Tablet, 1 EACH PO DAILY, (Reported) Febuxostat 40 Mg Tablet, 40 MG PO DAILY, (Reported) Fenofibric Acid (Choline) 45 Mg Capsule.dr, 45 MG PO DAILY, (Reported) Hydrocodone/Acetaminophen 1 Each Tablet, 1-2 TAB PO Q4H MAY TAKE ONE OR TWO TABLETS BY MOUTH EVERY 4 HOURS NEEDED FOR PAIN. Prescribed by: NOÉ VALDEZ on 08/26/16 1508 Hydrocodone/Acetaminophen 1 Each Tablet, 1-2 EACH PO Q6H PRN for PAIN-MODERATE Prescribed by: BAYRON CAZARES on 02/26/18 1416 Levofloxacin 250 Mg Tablet, 250 MG PO DAILY TAKE ONE TABLET BY MOUTH DAILY FOR 7 DAYS STARTING TOMORROW MORNING 08/27/16. USE ALL OF THIS ANTIBIOTIC INSTRUCTED. Prescribed by: NOÉ VALDEZ on 08/26/16 1508 Ondansetron 4 Mg Tab.rapdis, 4 MG SL Q4H PRN for NAUSEA/VOMITING-1ST LINE Prescribed by: BAYRON CAZARES on 02/26/18 1416 Phenazopyridine HCl 200 Mg Tablet, 1 TAB PO TID MAY TAKE ONE TABLET BY MOUTH UP TO 3 TIMES A DAY NEEDED FOR BLADDER SPASM/ PAIN. Prescribed by: NOÉ VALDEZ on 08/26/16 1508 Tamsulosin HCl 0.4 Mg Cap, 0.4 MG PO DAILY Prescribed by: TRACEY QUINONES on 08/18/16 1518 Patient Home Medication List Home Medication List Reviewed: Yes Review of Systems Constitutional: no symptoms reported EENTM: no symptoms reported Respiratory: no symptoms reported Cardiovascular: no symptoms reported Gastrointestinal: no symptoms reported Genitourinary: see HPI Musculoskeletal: no symptoms reported Skin: no symptoms reported Psychiatric/Neurological: No Symptoms Reported Past Nupcdhy-Dszsdy-Pgvrpy Hx Patient Social History Alcohol Use: Denies Use Recreational Drug Use: No Type Used: Smokeless Tobacco 2nd Hand Smoke Exposure: No Recent Foreign Travel: No Contact w/Someone Who Travel: No Recent Infectious Disease Expo: No Recent Hopitalizations: No Physical Abuse: No Sexual Abuse: No Immunizations Up To Date Date of Influenza Vaccine: Feb 29, 2016 Seasonal Allergies Seasonal Allergies: No Past Medical History Surgeries: Yes ([facility]) Appendectomy, Gallbladder, Valve Replacement Respiratory: Yes (DOESNT USE CPAP) Sleep Apnea Cardiac: Yes (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) Hypertension, Valvular Heart Disease Neurological: No Reproductive Disorders: No Sexually Transmitted Disease: No HIV/AIDS: No Kidney Stones Gastrointestinal: Yes Polyps Musculoskeletal: Yes Gout Endocrine: No Loss of Vision: Bilateral Hearing Impairment: Denies Cancer: No Psychosocial: No Integumentary: No Blood Disorders: No Adverse Reaction/Blood Tranf: No (N/A) Physical Exam Vital Signs Vital Signs - First Documented 02/26/18 12:24 Temp 98.8 Pulse 84 Resp 18 B/P (MAP) 127/93 (104) Pulse Ox 96 O2 Delivery Room Air Capillary Refill : Less Than 3 Seconds Height, Weight, BMI Height: 6'0" Weight: 272lbs. 9.0oz. 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 Norm as Tested, Abnormal Cerebellar Tests Skin: Normal Color, Warm/Dry Progress/Results/Core Measures Results/Orders Lab Results Laboratory Tests Test 02/26/18 12:20 02/26/18 12:35 Range/Units White Blood Count 7.2 4.3-11.0 10^3/uL Red Blood Count 5.12 4.35-5.85 10^6/uL Hemoglobin 16.4 13.3-17.7 G/DL Hematocrit 45 40-54 % Mean Corpuscular Volume 89 80-99 FL Mean Corpuscular Hemoglobin 32 25-34 PG Mean Corpuscular Hemoglobin Concent 36 32-36 G/DL Red Cell Distribution Width 13.1 10.0-14.5 % Platelet Count 169 130-400 10^3/uL Mean Platelet Volume 10.0 7.4-10.4 FL Neutrophils (%) (Auto) 66 42-75 % Lymphocytes (%) (Auto) 23 12-44 % Monocytes (%) (Auto) 10 0-12 % Eosinophils (%) (Auto) 2 0-10 % Basophils (%) (Auto) 0 0-10 % Neutrophils # (Auto) 4.7 1.8-7.8 X 10^3 Lymphocytes # (Auto) 1.6 1.0-4.0 X 10^3 Monocytes # (Auto) 0.7 0.0-1.0 X 10^3 Eosinophils # (Auto) 0.1 0.0-0.3 10^3/uL Basophils # (Auto) 0.0 0.0-0.1 10^3/uL Prothrombin Time 19.5 H 12.2-14.7 SEC INR Comment 1.6 H 0.8-1.4 Sodium Level 138 135-145 MMOL/L Potassium Level 3.9 3.6-5.0 MMOL/L Chloride Level 104 98-107 MMOL/L Carbon Dioxide Level 23 21-32 MMOL/L Anion Gap 11 5-14 MMOL/L Blood Urea Nitrogen 17 7-18 MG/DL Creatinine 2.08 H 0.60-1.30 MG/DL Estimat Glomerular Filtration Rate 34 BUN/Creatinine Ratio 8 Glucose Level 98 70-105 MG/DL Calcium Level 9.7 8.5-10.1 MG/DL Corrected Calcium 9.4 8.5-10.1 MG/DL Total Bilirubin 3.5 H 0.1-1.0 MG/DL Aspartate Amino Transf (AST/SGOT) 17 5-34 U/L Alanine Aminotransferase (ALT/SGPT) 19 0-55 U/L Alkaline Phosphatase 71 40-136 U/L Total Protein 7.2 6.4-8.2 GM/DL Albumin 4.4 3.2-4.5 GM/DL Urine Color YELLOW Urine Clarity CLEAR Urine pH 6 5-9 Urine Specific Kell 1.020 1.016-1.022 Urine Protein NEGATIVE NEGATIVE Urine Glucose (UA) NEGATIVE NEGATIVE Urine Ketones 1+ H NEGATIVE Urine Nitrite NEGATIVE NEGATIVE Urine Bilirubin NEGATIVE NEGATIVE Urine Urobilinogen 1 NORMAL MG/DL Urine Leukocyte Esterase 1+ H NEGATIVE Urine RBC (Auto) NEGATIVE NEGATIVE Urine RBC NONE /HPF Urine WBC NONE /HPF Urine Squamous Epithelial Cells NONE /HPF Urine Crystals NONE /LPF Urine Bacteria NEGATIVE /HPF Urine Casts NONE /LPF Urine Mucus NEGATIVE /LPF Urine Culture Indicated NO My Orders Orders - BAYRON PRESTON MD Ua Culture If Indicated (02/26/18 12:12) Cbc With Automated Diff (02/26/18 12:31) Comprehensive Metabolic Panel (02/26/18 12:31) Protime With Inr (02/26/18 12:31) Saline Lock/Iv-Start (02/26/18 12:31) Ns Iv 1000 Ml (Sodium Chloride 0.9%) (02/26/18 13:09) Ns Iv 1000 Ml (Sodium Chloride 0.9%) (02/26/18 13:09) Ct Abd/Pelvis Wo(Kidney Stone) (02/26/18 13:15) Oxycodone/Apap 5/325mg Tablet (Percocet (02/26/18 14:15) Medications Given in ED Current Medications Medications Dose Ordered Sig/Arcenio Route Start Time Stop Time Status Last Admin Dose Admin Sodium Chloride 1,000 ml @ 0 mls/hr Q0M ONCE IV 02/26/18 13:09 02/26/18 13:10 DC 02/26/18 13:13 0 MLS/HR Sodium Chloride 1,000 ml @ 0 mls/hr Q0M ONCE IV 02/26/18 13:09 9/29/18 13:10 DC 02/26/18 14:11 0 MLS/HR Vital Signs/I&O 02/26/18 12:24 Temp 98.8 Pulse 84 Resp 18 B/P (MAP) 127/93 (104) Pulse Ox 96 O2 Delivery Room Air Blood Pressure Mean: 104 Progress Progress Note : Progress Note UA was unremarkable. Options for imaging studies was discussed with patient. He is fairly certain this pain represents a ureteral stone based on his prior experiences. He would like to have the CT scan performed and is aware of the radiation risk. CT was performed and a 7 mm proximal ureteral stone was found on the right. He continues to have a cyst on the left. Creatinine was elevated which is thought to represent acute renal failure based on his historic creatinine found in the chart. 2 L of IV normal saline was infused. INR is a little subtherapeutic at 1.6. He was advised to discuss his warfarin dosing with Dr. Stack on Wednesday. Patient found a ride to take him home. Percocet was given prior to dismissal. Diagnostic Imaging Diagonstic Imaging: CT Plain Films/CT/US/NM/MRI: abdomen, pelvis Comments CT abdomen and pelvis viewed by me and report reviewed. See report below: NAME: SUNSHINE ARGUELLO [facility] REC#: [id number] PT STATUS: REG ER : 1965 PHYSICIAN: BAYRON PRESTON MD ADMIT DATE: 02/26/18/ER Draft Date of Exam:02/26/18 CT ABD/PELVIS WO(KIDNEY STONE) PROCEDURE: CT urinary tract, rule out kidney stone. TECHNIQUE: Multiple contiguous axial images were obtained through the abdomen and pelvis without the use of intravenous contrast. INDICATION: Right flank pain. FINDINGS: Lung bases are clear. Liver appears normal. Gallbladder is surgically absent. Pancreas is normal. Spleen is not enlarged. Adrenals are normal. There is a 5 cm cyst in the upper pole of the left kidney. There is hydronephrosis of the right kidney secondary to an obstructing calculus in the proximal right ureter that measures 7 mm in diameter. Large and small intestine appears normal. There is no retroperitoneal free air or free fluid. Appendix is surgically absent. Urinary bladder is normal. IMPRESSION: 7 mm obstructing calculus proximal right ureter. Dictated on workstation # [id number] Dict: 02/26/18 1334 Trans: 02/26/18 1401 [id number] Interpreted by: LUDWIG GARLAND MD Departure Impression Primary Impression: Right ureteral stone Additional Impressions: Hydronephrosis Qualified Codes: N13.2 - Hydronephrosis with renal and ureteral calculous obstruction Anticoagulated Acute renal failure Qualified Codes: N17.9 - Acute kidney failure, unspecified Renal cyst Disposition: HOME, SELF-CARE Condition: Improved Departure-Patient Inst. Decision time for Depature: 14:12 Referrals: CARMEN STACK DO (PCP/Family) Primary Care Physician Patient Instructions: Acute Kidney Failure, Kidney Stones (DC) Add. Discharge Instructions: Drink plenty of clear liquids. Follow-up with Dr. Stack and Dr. Quintana as soon as possible. Strain your urine and bring any stones or fragments with you to your follow-up appointment. Your INR is not quite therapeutic. Discuss your warfarin (Coumadin) dosing with Dr. Stack. Use your pain medication as prescribed. Add Zofran (ondansetron) as needed if you develop nausea. Return to the emergency room if you have any worsening of condition, problems, or concerns. All discharge instructions reviewed with patient and/or family. Voiced understanding. Scripts Ondansetron (Zofran Odt) 4 Mg Tab.rapdis 4 MG SL Q4H PRN for NAUSEA/VOMITING-1ST LINE, #10 TAB 1 Refill Prov: BAYRON PRESTON MD 02/26/18 Hydrocodone/Acetaminophen (Hydrocodone-Acetamin 5-325 mg) 1 Each Tablet 1-2 EACH PO Q6H PRN for PAIN-MODERATE, #20 TAB Prov: BAYRON PRESTON MD 02/26/18 Copy Copies To 1: CARMEN STACK DO Copies To 2: JUDY QUINTANA MD, JOSHUA T MD Feb 26, 2018 13:56
--- NOTE | 2018-02-26 14:02 | Diagnostic Imaging Report ---
PROCEDURE: CT urinary tract, rule out kidney stone. TECHNIQUE: Multiple contiguous axial images were obtained through the abdomen and pelvis without the use of intravenous contrast. INDICATION: Right flank pain. FINDINGS: Lung bases are clear. Liver appears normal. Gallbladder is surgically absent. Pancreas is normal. Spleen is not enlarged. Adrenals are normal. There is a 5 cm cyst in the upper pole of the left kidney. There is hydronephrosis of the right kidney secondary to an obstructing calculus in the proximal right ureter that measures 7 mm in diameter. Large and small intestine appears normal. There is no retroperitoneal free air or free fluid. Appendix is surgically absent. Urinary bladder is normal. IMPRESSION: 7 mm obstructing calculus proximal right ureter. Dictated by: Dictated on workstation # [id number]
[2018-02-26] MEDS ORDERED: oxyCODONE/APAP 5/325MG (PERCOCET 5) TABLET PO ONE (14:15)
[2018-02-26] MEDS ORDERED: HYDR-3812 PO (14:16)
[2018-02-26] MEDS ORDERED: ONDA4TAB8 SL (14:16)
[2018-02-26 14:40] VITALS: BP 127/93
== END 2018-02-26 15:00 | disposition home or self-care (01) ==
LOC: EDUNIT# 11:58 → ER 11:59
DX: N13.2 Hydronephrosis with renal and ureteral calculous obstruction (principal); N17.9 Acute kidney failure, unspecified; N28.1 Cyst of kidney, acquired; G47.30 Sleep apnea, unspecified; I10 Essential (primary) hypertension; M10.9 Gout, unspecified; Z86.010 Personal history of colon polyps; Z87.442 Personal history of urinary calculi; Z90.89 Acquired absence of other organs; Z95.2 Presence of prosthetic heart valve; Z79.01 Long term (current) use of anticoagulants
CPT/HCPCS: 36415; 74176; 80053; 81000; 85025; 85610

== ENCOUNTER → 2018-02-28 | Outpatient (CLI) | payer OTHER ==
[~2018-02-28] MED LIST changes: +CIPR-225 PO; +FEBU80TA PO; +FENO135C4 PO; +HYDR-3812 PO; +ONDA4TAB8 SL; +TRIA1TAB3 PO; +WARF10TA44 PO
--- NOTE | 2018-02-28 16:53 | Diagnostic Imaging Report ---
EXAMINATION: Abdominal radiographs, single supine view, two images. DATE: February 28, 2018. CLINICAL INDICATION: 52-year-old male, right ureteral stone. COMPARISON: CT abdomen and pelvis February 26, 2018. COMMENTS: There is a calcification in the right abdomen correlating with the stone in the right proximal ureter on recent CT. This is radiographically measured at 8 mm in size. This is seen at the level of L1-L2. There is no additional radiographically visible renal or ureteral stone. There is also no additional renal or ureteral stone seen on prior recent CT. There are gas-filled segments of bowel which are not grossly distended. IMPRESSION: 1. 8mm stone in the right proximal ureter which is located at the level of L1-L2. This correlates with the right proximal ureteral stone seen on very recent comparison CT. Dictated by: Dictated on workstation # [id number]
== END ==
LOC: RAD 14:53
PROVIDERS: ATTEND Urology
DX: N20.1 Calculus of ureter (principal)
CPT/HCPCS: 74018

== ENCOUNTER 2018-03-01 10:56 | Outpatient (CLI) | payer OTHER ==
[~2018-03-01] VITALS: Ht 182.9 cm; Wt 123.6 kg
[~2018-03-01 10:56] MED LIST changes: -CIPR-225 PO; -FEBU80TA PO; -FENO135C4 PO; -TRIA1TAB3 PO; -WARF10TA44 PO
[2018-03-01] MEDS ORDERED: TRIA1TAB3 PO (12:38)
[2018-03-01] MEDS ORDERED: WARF10TA44 PO (12:38)
[2018-03-01] MEDS ORDERED: FEBU80TA PO (12:38)
[2018-03-01] MEDS ORDERED: FENO135C4 PO (12:38)
[2018-03-02] MEDS ORDERED: TAMS0.4C98 PO (10:39)
[2018-03-02] MEDS ORDERED: CIPR-225 PO (10:39)
[2018-03-02] MEDS ORDERED: PHEN-640 PO (10:39)
== END 2018-03-01 12:54 | disposition home or self-care (01) ==
LOC: PREOP 10:56
PROVIDERS: ATTEND Urology
DX: Z01.818 Encounter for other preprocedural examination (principal)

== ENCOUNTER 2018-03-02 07:11 | Day surgery (SDC) | payer OTHER ==
[~2018-03-02] VITALS: Ht 182.9 cm; Wt 123.6 kg
--- NOTE | 2018-03-02 07:05 | Progress Note-Pre Operative ---
Pre-Operative Progress Note H&P Reviewed The H&P was reviewed, patient examined and no changes noted. Date Seen by Provider: Mar 02, 2018 Time Seen by Provider: 07:04 Date H&P Reviewed: Mar 02, 2018 Time H&P Reviewed: 07:04 Pre-Operative Diagnosis: RT PROXIMAL URETERAL STONE JUDY QUINTANA MD Mar 02, 2018 7:05 am
[~2018-03-02 07:11] MED LIST changes: +FEBU80TA PO; +FENO135C4 PO; +TRIA1TAB3 PO; +WARF10TA44 PO
[2018-03-02 07:30] VITALS: BP 127/86
[2018-03-02] MEDS ORDERED: LACTATED RINGERS 1,000 ML IV PRN (07:30)
[2018-03-02] MEDS ORDERED: GENTAMICIN (ADULT) INJECTION 80 MG in NS (IVPB) 100 ML IV ONE (07:30)
[2018-03-02] MEDS ORDERED: AMPICILLIN FOR IV USE 2,000 MG in NS (IVPB) 50 ML IV ONE (07:30)
[2018-03-02] MEDS ORDERED: CATHETER FLUSH 10 ML SYR IV PRN (07:45)
[2018-03-02] MEDS ORDERED: ONDANSETRON 4 MG/2 ML (SDV) Z0FRAN ONE ×2 (08:01→09:28)
[2018-03-02] MEDS ORDERED: fentaNYL INJECTION 100 MCG/2 ML AMP ONE (08:01)
[2018-03-02] MEDS ORDERED: FAMOTIDINE 20MG/2ML IV (PEPCID) ONE (08:03)
--- NOTE | 2018-03-02 08:06 | Diagnostic Imaging Report ---
INDICATION: Right ureteral stone. TIME OF EXAM: 08:10 a.m. Correlation is made with prior study from 02/28/2018. Previously noted calculus on the right in the region of proximal right ureter is unchanged in position. This remains at the level of L1-L2. No other radiopaque urinary tract calculi are seen. The bowel gas pattern is unremarkable. IMPRESSION: No significant change in position of the proximal right ureteric stone when compared with prior examination two days earlier. Dictated by: Dictated on workstation # [id number]
--- NOTE | 2018-03-02 08:12 | Progress Note-Post Operative ---
Post-Operative Progess Note Surgeon (s)/Occupational Health Coordinator (s) Surgeon JUDY QUINTANA MD Occupational Health Coordinator: NONE Pre-Operative Diagnosis RT PROXIMAL URETERAL STONE Post-Operative Diagnosis SAME Procedure & Operative Findings Date of Procedure 03/02/18 Procedure Performed/Findings CYSTOSCOPY, RT URETERAL STONE MANIPULATION AND INSERTION OF STENT Anesthesia Type GENERAL Estimated Blood Loss Estimated blood loss (mL): NONE Specimens/Packing Specimens Removed NONE Packing: NONE JUDY QUINTANA MD Mar 02, 2018 8:12 am
[2018-03-02] MEDS ORDERED: fentaNYL INJECTION 100 MCG/2 ML AMP IV ONE (08:15)
[2018-03-02] MEDS ORDERED: FAMOTIDINE 20MG/2ML IV (PEPCID) IV ONE (08:15)
[2018-03-02] MEDS ORDERED: ONDANSETRON 4 MG/2 ML (SDV) Z0FRAN IV ONE (08:15)
[2018-03-02] MEDS ORDERED: MIDAZOLAM 2 MG/2 ML (VERSED) VIAL ONE (08:16)
[2018-03-02 08:21] LABS: PROTHROMBIN TIME PATIENT 14.6 SEC (12.2-14.7)
[2018-03-02 08:22] LABS: INR 1.1 (0.8-1.4)
[2018-03-02] MEDS ORDERED: proPOfol 200 MG/20 ML (DIPRIVAN) VIAL IV ONE ×2 (09:28→09:54)
[2018-03-02] MEDS ORDERED: SEVOFLURANE (ULTANE) 15 ML INHAL SOLN ONE ×3 (09:28→10:08)
[2018-03-02] MEDS ORDERED: ROCURONIUM 10 MG/ML 5 ML SYRINGE IV ONE (09:28)
[2018-03-02] MEDS ORDERED: LIDOCAINE PF 2% 2 ML (XYLOCAINE) VIAL ONE (09:28)
[2018-03-02] MEDS ORDERED: LIDOCAINE JELLY 2% (XYLOCAINE) 5 ML TUBE ONE (09:28)
[2018-03-02] MEDS ORDERED: morphine INJ 10 MG/ML 1ML (SYR OR VIAL) IVP ONE (10:15)
[2018-03-02] MEDS ORDERED: MEPERIDINE (DEMEROL) INJ 50 MG/ML IVP ONE (10:15)
[2018-03-02] MEDS ORDERED: ONDANSETRON 4 MG/2 ML (SDV) Z0FRAN IVP PRN (10:15)
--- NOTE | 2018-03-02 10:18 | Discharge Inst-Urology ---
Discharge Inst-Urology Discharge Medications New, Converted, or Re-newed RX: RX on Chart Patient Instructions/Follow Up Plan Please make appointment to been seen in office next Thursday 03/08, KUB prior to it Stay off ASA Resume Coumadin but hold from Monday 03/05 Increase oral fluids for 48 hours and then as needed. Diet and Activity as tolerated. If questions or concerns contact your physician Or seek help at emergency department. JUDY QUINTANA MD Mar 02, 2018 10:18 am
[2018-03-02] MEDS ORDERED: CIPR-225 PO (10:39)
[2018-03-02] MEDS ORDERED: PHEN-640 PO (10:39)
[2018-03-02] MEDS ORDERED: TAMS0.4C98 PO (10:39)
[2018-03-02 10:55] VITALS: BP 124/88
[2018-03-02] MEDS ORDERED: cefTRIAXone FOR IV USE 1,000 MG in NS (IVPB) 50 ML IV ONE (11:15)
[2018-03-02 11:25] VITALS: BP 126/88
[2018-03-02] MEDS ORDERED: HYDROcodone/APAP 5 MG/325 MG (LORTAB) TAB PO ONE (11:30)
--- NOTE | 2018-03-02 11:33 | Anesthesia-General Post-Op ---
General Patient Condition Mental Status/LOC: Same as Preop Cardiovascular: Satisfactory Nausea/Vomiting: Absent Respiratory: Satisfactory Pain: Controlled Complications: Absent Post Op Complications Complications None Follow Up Care/Instructions Patient Instructions None needed. Anesthesia/Patient Condition Patient Condition Patient is doing well, no complaints, stable vital signs, no apparent adverse anesthesia problems. No complications reported per nursing. D/C home per [facility] Criteria: Yes ANSON GALLOWAY CRNA Mar 02, 2018 11:33
[2018-03-02 11:55] VITALS: BP 124/90
--- NOTE | 2018-03-02 13:35 | OPERATIVE REPORT ---
DATE OF SERVICE: 03/02/2018 PREOPERATIVE DIAGNOSIS: Right proximal ureteral stone. POSTOPERATIVE DIAGNOSIS: Right proximal ureteral stone. OPERATION PERFORMED: Cystoscopy with right ureteral stone manipulation and insertion of right double-J stent. SURGEON: Sree Quintana MD. ANESTHESIA: General. COMPLICATIONS: None. PROCEDURE: Under satisfactory general anesthesia, the patient in the lithotomy position, the genitalia were prepped and draped in the usual sterile fashion. Cystoscope was introduced under vision. The anterior urethra was normal. The prostate was small, nonobstructing and bladder neck open. Bladder was entered and it was normal. There were mild trabeculations. Ureteric orifices were normal in shape, size and configuration with clear efflux, sluggish on the right side. Using the foroblique lens, I passed a 6-Ethiopian ureteral catheter all the way up to the level of the stone. I tried to push it, was unable, so I went ahead and injected saline through the catheter, which was able to push the stone into the kidney, helped also by pushing it the catheter. I removed ureteral catheter, inserted a 6-Ethiopian 28 cm double-J ureteral stent guided all the way fluoroscopically to the right renal pelvis. The wire was removed and the stent was seen draining nicely proximally fluoroscopically and distally endoscopically. The bladder was evacuated. Cystoscope was removed. The patient tolerated the procedure and anesthesia well and was sent to recovery room in stable condition. PLAN: ESWL next Wednesday when the machine is here. The plan was fully explained to his . Job ID: [id number] DocumentID: [id number] Dictated Date: 03/02/2018 10:15:35 Customer Service Specialist Date: 03/02/2018 13:35:15 Dictated By: SREE QUINTANA MD
== END 2018-03-02 12:00 | disposition home or self-care (01) ==
LOC: SDC 07:11
PROVIDERS: ATTEND Urology
DX: N20.1 Calculus of ureter (principal); Z11.2 Encounter for screening for other bacterial diseases; E78.5 Hyperlipidemia, unspecified; I10 Essential (primary) hypertension; M10.9 Gout, unspecified; Z79.01 Long term (current) use of anticoagulants; Z79.899 Other long term (current) drug therapy; Z95.2 Presence of prosthetic heart valve
CPT/HCPCS: 36415; 74018; 85610; 87081

== ENCOUNTER 2018-03-07 06:41 | Outpatient (CLI) | payer OTHER ==
[~2018-03-07] VITALS: Ht 182.9 cm; Wt 123.6 kg
[~2018-03-07 06:41] MED LIST changes: +CIPR-225 PO
[2018-03-09] MEDS ORDERED: NITR-65 PO (13:24)
== END 2018-03-08 16:32 | disposition home or self-care (01) ==
LOC: PREOP 06:41
PROVIDERS: ATTEND Urology
DX: Z01.818 Encounter for other preprocedural examination (principal)

== ENCOUNTER → 2018-03-08 | Outpatient (CLI) | payer OTHER ==
--- NOTE | 2018-03-08 14:25 | Diagnostic Imaging Report ---
INDICATION: Nephrolithiasis. FINDINGS: There has been interval placement of a right nephroureteral stent. There is a persistent stone near the right UPJ. Bowel gas pattern is nonspecific. IMPRESSION: 1. Persistent stone in the right renal pelvis. 2. Interval placement of a right nephroureteral stent. Dictated by: Dictated on workstation # [id number]
== END ==
LOC: RAD 14:06
PROVIDERS: ATTEND Urology
DX: N20.0 Calculus of kidney (principal); Z96.0 Presence of urogenital implants
CPT/HCPCS: 74018

== ENCOUNTER 2018-03-09 08:14 | Day surgery (SDC) | payer OTHER ==
[~2018-03-09] VITALS: Ht 182.9 cm; Wt 123.6 kg
[2018-03-09 08:17] VITALS: BP 114/80
[2018-03-09] MEDS ORDERED: GENTAMICIN (ADULT) INJECTION 80 MG in NS (IVPB) 100 ML IV ONE (08:30)
[2018-03-09] MEDS ORDERED: cefTRIAXone FOR IV USE 1,000 MG in NS (IVPB) 50 ML IV ONE (08:30)
[2018-03-09] MEDS ORDERED: AMPICILLIN FOR IV USE 2,000 MG in NS (IVPB) 50 ML IV ONE (08:30)
[2018-03-09] MEDS ORDERED: LACTATED RINGERS 1,000 ML IV PRN (08:35)
--- NOTE | 2018-03-09 09:03 | Progress Note-Pre Operative ---
Pre-Operative Progress Note H&P Reviewed The H&P was reviewed, patient examined and no changes noted. Date Seen by Provider: Mar 09, 2018 Time Seen by Provider: 09:02 Date H&P Reviewed: Mar 09, 2018 Time H&P Reviewed: 09:03 Pre-Operative Diagnosis: RT RENAL STONE JUDY QUINTANA MD Mar 09, 2018 9:03 am
--- NOTE | 2018-03-09 09:03 | Diagnostic Imaging Report ---
Indication: Nephrolithiasis. Comparison made with prior examination of 03/08/2018. Findings: A right nephroureteral stent remains in place. There is persistent stone along the proximal aspect of the stent. There are no other abnormal abdominal calcifications. Bowel gas pattern is nonspecific. Impression: Persistent stone along the proximal aspect of the right nephroureteral stent. Dictated by: Dictated on workstation # [id number]
[2018-03-09 09:18] LABS: INR 1.1 (0.8-1.4); PROTHROMBIN TIME PATIENT 14.1 SEC (12.2-14.7)
[2018-03-09] MEDS ORDERED: SEVOFLURANE (ULTANE) 15 ML INHAL SOLN ONE ×3 (10:45→11:54)
[2018-03-09] MEDS ORDERED: fentaNYL INJECTION 100 MCG/2 ML AMP ONE (10:45)
[2018-03-09] MEDS ORDERED: LIDOCAINE PF 2% 5 ML (XYLOCAINE) VIAL ONE (10:45)
[2018-03-09] MEDS ORDERED: ONDANSETRON 4 MG/2 ML (SDV) Z0FRAN ONE (10:45)
[2018-03-09] MEDS ORDERED: proPOfol 200 MG/20 ML (DIPRIVAN) VIAL IV ONE (10:45)
[2018-03-09] MEDS ORDERED: KETOROLAC 30 MG/ML VIAL ONE (10:45)
[2018-03-09] MEDS ORDERED: DEXAMETHASONE 10 MG/ML (DECADRON) 1 ML VIAL ONE (10:45)
[2018-03-09] MEDS ORDERED: FUROSEMIDE 40 MG/4 ML INJ (LASIX) ONE (10:45)
[2018-03-09] MEDS ORDERED: MIDAZOLAM 2 MG/2 ML (VERSED) VIAL ONE (10:46)
--- NOTE | 2018-03-09 11:33 | Progress Note-Pre Operative ---
Pre-Operative Progress Note H&P Reviewed The H&P was reviewed, patient examined and no changes noted. Date Seen by Provider: Mar 09, 2018 Time Seen by Provider: 09:00 Date H&P Reviewed: Mar 09, 2018 Time H&P Reviewed: 09:03 Pre-Operative Diagnosis: RT RENAL STONE JUDY QUINTANA MD Mar 09, 2018 11:33 am
--- NOTE | 2018-03-09 11:35 | Progress Note-Post Operative ---
Post-Operative Progess Note Surgeon (s)/Chef Under (s) Surgeon JUDY QUINTANA MD Chef Under: NONE Pre-Operative Diagnosis RT RENAL STONE Post-Operative Diagnosis SAME Procedure & Operative Findings Date of Procedure 03/09/18 Procedure Performed/Findings RT ESWL Anesthesia Type GENERAL Estimated Blood Loss Estimated blood loss (mL): NONE Specimens/Packing Specimens Removed NONE Packing: NONE JUDY QUINTANA MD Mar 09, 2018 11:35 am
--- NOTE | 2018-03-09 11:42 | Discharge Inst-Urology ---
Discharge Inst-Urology Discharge Medications New, Converted, or Re-newed RX: RX on Chart Patient Instructions/Follow Up Plan Please make appointment to been seen in office next week for cysto and DC stent. KUB prior to it KUB on way home Post ESWL instructions In 48 hours, if no bleeding, may resume ASA Increase oral fluids for 48 hours and then as needed. Diet and Activity as tolerated. If questions or concerns contact your physician Or seek help at emergency department. JUDY QUINTANA MD Mar 09, 2018 11:42 am
[2018-03-09 13:05] VITALS: BP 110/77
[2018-03-09] MEDS ORDERED: NITR-65 PO (13:24)
[2018-03-09 13:35] VITALS: BP 109/78
[2018-03-09] MEDS ORDERED: NS (IVPB) 50 ML ONE (13:40)
[2018-03-09] MEDS ORDERED: cefTRIAXone 1 GM/10 ML for IV (ROCEPHIN) ONE (13:40)
--- NOTE | 2018-03-09 13:47 | Diagnostic Imaging Report ---
INDICATION: Nephrolithiasis, post extracorporeal shockwave lithotripsy. TECHNIQUE: Single supine view of the abdomen at 2:02 p.m. CORRELATION STUDY: 03/09/2018. FINDINGS: Right ureteral stent remains in place. 7 mm calcification adjacent to the proximal aspect of the stent is stable. Gas-filled loops of bowel are noted throughout the abdomen. Additional densities in the right mid abdomen are unchanged. IMPRESSION: 1. Right ureteral stent. No appreciable change in positioning or appearance about the calcification adjacent to the proximal aspect. Dictated by: Dictated on workstation # [id number]
[2018-03-09] MEDS ORDERED: HYDROcodone/APAP 5 MG/325 MG (LORTAB) TAB PO ONE (13:50)
[2018-03-09] MEDS ORDERED: HYDROcodone/APAP 5 MG/325 MG (LORTAB) TAB ONE (13:52)
--- NOTE | 2018-03-09 13:55 | OPERATIVE REPORT ---
DATE OF SERVICE: 03/09/2018 PREOPERATIVE DIAGNOSIS: Right renal stone. POSTOPERATIVE DIAGNOSIS: Right renal stone. OPERATION PERFORMED: Right ESWL. SURGEON: Sree Quintana MD. ANESTHESIA: General. COMPLICATIONS: None. DESCRIPTION OF PROCEDURE: Under satisfactory general anesthesia, the patient in supine position on the ESWL table, the right renal stone was localized. Shocks were delivered at a kV of 4. Total of 3000 shocks completely fragmented the stone. The patient received 40 mg of Lasix and 30 mg of Toradol IV at the end of the procedure. He tolerated the procedure and anesthesia well and was sent to recovery room in stable condition. Job ID: [id number] DocumentID: [id number] Dictated Date: 03/09/2018 12:06:35 Weir Fisherman Date: 03/09/2018 13:54:36 Dictated By: SREE QUINTANA MD
[2018-03-09 14:05] VITALS: BP 102/70
[2018-03-09 14:20] VITALS: BP 102/70
--- NOTE | 2018-03-09 15:21 | Anesthesia-General Post-Op ---
General Patient Condition Mental Status/LOC: Same as Preop Cardiovascular: Satisfactory Nausea/Vomiting: Absent Respiratory: Satisfactory Pain: Controlled Complications: Absent Post Op Complications Complications None Follow Up Care/Instructions Patient Instructions None needed. Anesthesia/Patient Condition Patient Condition Patient was seen after the surgery and he was doing well, no complaints, stable vital signs, no apparent adverse anesthesia problems. HENRIQUE VILLASEÑOR DO Mar 09, 2018 15:21
== END 2018-03-09 14:20 | disposition home or self-care (01) ==
LOC: SDC 08:14
PROVIDERS: ATTEND Urology
DX: N20.0 Calculus of kidney (principal); I10 Essential (primary) hypertension; F17.220 Nicotine dependence, chewing tobacco, uncomplicated; Z95.2 Presence of prosthetic heart valve; Z79.01 Long term (current) use of anticoagulants
CPT/HCPCS: 36415; 74018; 85610; 87081

== ENCOUNTER → 2018-03-17 | Outpatient (CLI) | payer OTHER ==
[~2018-03-17] MED LIST changes: +HYDR-3870 PO
--- NOTE | 2018-03-17 17:50 | Diagnostic Imaging Report ---
INDICATION: Right renal stone. Status post ESWL. FINDINGS: Supine views of the abdomen show a ureteral stent present on the right. A stone is seen at the level of the right renal pelvis. No stones are seen distal to this. No stones are seen on the left. There is no change from 03/09/2018. IMPRESSION: Stable abdomen. There is no change in the size, shape, or position of the stone on the right. Dictated by: Dictated on workstation # [id number]
== END ==
LOC: RAD 15:00
PROVIDERS: ATTEND Urology
DX: N20.0 Calculus of kidney (principal); Z98.890 Other specified postprocedural states
CPT/HCPCS: 74018

== ENCOUNTER 2018-03-21 05:33 | Outpatient (CLI) | payer OTHER ==
[~2018-03-21] VITALS: Ht 182.9 cm; Wt 123.6 kg
[~2018-03-21 05:33] MED LIST changes: -HYDR-3870 PO
[2018-03-22] MEDS ORDERED: NITR-65 PO (08:26)
[2018-03-22] MEDS ORDERED: HYDR-3870 PO (08:26)
[2018-03-22] MEDS ORDERED: TAMS0.4C98 PO (08:26)
== END 2018-03-21 11:49 | disposition home or self-care (01) ==
LOC: PREOP 05:33
PROVIDERS: ATTEND Urology
DX: Z01.818 Encounter for other preprocedural examination (principal)

== ENCOUNTER 2018-03-22 05:47 | Day surgery (SDC) | payer OTHER ==
[~2018-03-22] VITALS: Ht 182.9 cm; Wt 123.6 kg
[2018-03-22 06:20] VITALS: BP 111/79
[2018-03-22] MEDS ORDERED: NS (IVPB) 50 ML ONE (06:22)
[2018-03-22] MEDS ORDERED: cefTRIAXone 1 GM/10 ML for IV (ROCEPHIN) ONE (06:22)
[2018-03-22] MEDS: LACTATED RINGERS 1,000 ML IV PRN ×2 (06:39→07:57)
[2018-03-22] MEDS ORDERED: cefTRIAXone FOR IV USE 1,000 MG in NS (IVPB) 50 ML IV ONE (06:45)
[2018-03-22] MEDS ORDERED: fentaNYL INJECTION 100 MCG/2 ML AMP ONE (06:53)
[2018-03-22] MEDS ORDERED: MIDAZOLAM 2 MG/2 ML (VERSED) VIAL ONE (06:53)
[2018-03-22] MEDS ORDERED: ONDANSETRON 4 MG/2 ML (SDV) Z0FRAN ONE (06:57)
[2018-03-22] MEDS ORDERED: SEVOFLURANE (ULTANE) 15 ML INHAL SOLN ONE (06:57)
[2018-03-22] MEDS ORDERED: proPOfol 200 MG/20 ML (DIPRIVAN) VIAL IV ONE (06:57)
[2018-03-22] MEDS ORDERED: DEXAMETHASONE 10 MG/ML (DECADRON) 1 ML VIAL ONE (06:57)
[2018-03-22] MEDS ORDERED: LIDOCAINE PF 2% 5 ML (XYLOCAINE) VIAL ONE (06:57)
--- NOTE | 2018-03-22 06:57 | Diagnostic Imaging Report ---
INDICATION: Nephrolithiasis. Comparison made with prior examination 03/17/2018. FINDINGS: The bowel gas pattern is nonspecific. A right nephroureteral stent remains in place. There is a persistent stone along the proximal aspect of the right ureteral stent. The osseous structures are unremarkable. IMPRESSION: Persistent stone presumably in the proximal right ureter. A right nephroureteral stent remains in place. Dictated by: Dictated on workstation # [id number]
--- NOTE | 2018-03-22 07:13 | Progress Note-Pre Operative ---
Pre-Operative Progress Note H&P Reviewed The H&P was reviewed, patient examined and no changes noted. Date Seen by Provider: Mar 22, 2018 Time Seen by Provider: 07:12 Date H&P Reviewed: Mar 22, 2018 Time H&P Reviewed: 07:12 Pre-Operative Diagnosis: RT PROXIMAL URETERAL STONE JUDY QUINTANA MD Mar 22, 2018 7:13 am
[2018-03-22] MEDS ORDERED: FUROSEMIDE 40 MG/4 ML INJ (LASIX) ONE (07:31)
[2018-03-22] MEDS ORDERED: KETOROLAC 30 MG/ML VIAL ONE (07:31)
--- NOTE | 2018-03-22 07:32 | Progress Note-Post Operative ---
Post-Operative Progess Note Surgeon (s)/Military Pay Clerk (s) Surgeon JUDY QUINTANA MD Military Pay Clerk: NONE Pre-Operative Diagnosis RT PROXIMAL URETERAL STONE Post-Operative Diagnosis SAME Procedure & Operative Findings Date of Procedure 03/22/18 Procedure Performed/Findings RT ESWL Anesthesia Type GENERAL Estimated Blood Loss Estimated blood loss (mL): N/A Specimens/Packing Specimens Removed NONE Packing: NONE JUDY QUINTANA MD Mar 22, 2018 7:32 am
--- NOTE | 2018-03-22 07:34 | Discharge Inst-Urology ---
Discharge Inst-Urology Discharge Medications New, Converted, or Re-newed RX: RX on Chart Patient Instructions/Follow Up Plan Please make appointment to been seen in office in 2 weeks. KUB prior to it KUB on way home ESWL instructions Increase oral fluids for 48 hours and then as needed. Diet and Activity as tolerated. If questions or concerns contact your physician Or seek help at emergency department. JUDY QUINTANA MD Mar 22, 2018 7:34 am
[2018-03-22] MEDS ORDERED: TAMS0.4C98 PO (08:26)
[2018-03-22] MEDS ORDERED: NITR-65 PO (08:26)
[2018-03-22] MEDS ORDERED: HYDR-3870 PO (08:26)
[2018-03-22] MEDS ORDERED: morphine INJ 10 MG/ML 1ML (SYR OR VIAL) IVP ONE (08:30)
[2018-03-22] MEDS ORDERED: ONDANSETRON 4 MG/2 ML (SDV) Z0FRAN IVP PRN (08:30)
[2018-03-22 09:05] VITALS: BP 109/91
[2018-03-22] MEDS ORDERED: HYDROcodone/APAP 5 MG/325 MG (LORTAB) TAB PO PRN (09:30)
[2018-03-22 09:35] VITALS: BP 127/87
[2018-03-22 10:00] VITALS: BP 127/87
--- NOTE | 2018-03-22 10:02 | Anesthesia-General Post-Op ---
General Patient Condition Mental Status/LOC: Same as Preop Cardiovascular: Satisfactory Nausea/Vomiting: Absent Respiratory: Satisfactory Pain: Controlled Complications: Absent Post Op Complications Complications None Follow Up Care/Instructions Patient Instructions None needed. Anesthesia/Patient Condition Patient Condition Patient is doing well, no complaints, stable vital signs, no apparent adverse anesthesia problems. No complications reported per nursing. YOAV AGUILAR CRNA Mar 22, 2018 10:02
--- NOTE | 2018-03-22 11:54 | OPERATIVE REPORT ---
DATE OF SERVICE: 03/22/2018 PREOPERATIVE DIAGNOSIS: Right proximal ureteral stone. POSTOPERATIVE DIAGNOSIS: Right proximal ureteral stone. OPERATION PERFORMED: Right ESWL. SURGEON: Sree Quintana MD. ANESTHESIA: General. COMPLICATIONS: None. DESCRIPTION OF PROCEDURE: Under satisfactory general anesthesia, the patient in supine position on the ESWL table, the right proximal stone was localized. Shocks were delivered at kV of 6. A total of three 3500 shocks seemed to have fragmented the stone very nicely became very lite and spread on fluoroscopy. The patient received 40 mg of Lasix and 30 mg of Toradol IV at the end of the procedure. He tolerated the procedure and anesthesia well and was sent to recovery room in stable condition. I decided not to remove the stent until he clears the stones. The next step, if this does not work is to send him to a facility with flexible ureteroscopy and laser. This was well explained to the patient and his prior to surgery and again after surgery. Job ID: [id number] DocumentID: [id number] Dictated Date: 03/22/2018 08:32:48 Geotechnical Engineer Date: 03/22/2018 11:53:38 Dictated By: SREE QUINTANA MD
--- NOTE | 2018-03-22 13:16 | Diagnostic Imaging Report ---
INDICATION: Status post lithotripsy. TIME OF EXAM: 10:32 AM Correlation is made with prior study earlier same day. FINDINGS: Right-sided double-J nephroureteral stent in place. Calculus along the proximal aspect of the stent appears unchanged. No significant fragmentation is seen. Clips in the right upper quadrant are identified. Left-sided urinary tracts are without evidence of radiopaque calculi. IMPRESSION: No significant change when compared with KUB earlier the same day. Dictated by: Dictated on workstation # [id number]
== END 2018-03-22 10:13 | disposition home or self-care (01) ==
LOC: SDC 05:47
PROVIDERS: ATTEND Urology
DX: N20.1 Calculus of ureter (principal); I10 Essential (primary) hypertension; G47.33 Obstructive sleep apnea (adult) (pediatric); F17.220 Nicotine dependence, chewing tobacco, uncomplicated; Z95.2 Presence of prosthetic heart valve; Z79.01 Long term (current) use of anticoagulants; Z79.899 Other long term (current) drug therapy
CPT/HCPCS: 74018; 87081

== ENCOUNTER → 2018-04-05 | Outpatient (CLI) | payer OTHER ==
[~2018-04-05] MED LIST changes: +HYDR-3870 PO
--- NOTE | 2018-04-05 15:41 | Diagnostic Imaging Report ---
Indication: Right nephrolithiasis. KUB 2:01 PM The patient has right double-J ureteral stent. There is a 6 mm stone in the proximal right ureter near the ureteropelvic junction. Impression: Right nephrolithiasis. No change from study done 03/22/2018. Dictated by: Dictated on workstation # [id number]
== END ==
LOC: RAD 13:26
PROVIDERS: ATTEND Urology
DX: N20.2 Calculus of kidney with calculus of ureter (principal)
CPT/HCPCS: 74018

== ENCOUNTER → 2018-04-13 | Outpatient (CLI) | payer OTHER ==
--- NOTE | 2018-04-13 13:21 | Diagnostic Imaging Report ---
INDICATION: Status post lithotripsy on the right one week ago. TIME OF EXAM: 01:31 p.m. Correlation is made with prior abdominal radiograph from 04/05/2018. FINDINGS: Right-sided nephroureteral stent has been removed. Calcific density projects in the region of the [id number] right ureter just lateral to the right L2 transverse process measuring 6-7 mm. No other ureteral calculi are seen. No renal calculi are detected. The bowel gas pattern is unremarkable. IMPRESSION: 7 mm right ureteric calculus. Dictated by: Dictated on workstation # [id number]
== END ==
LOC: RAD 11:57
PROVIDERS: ATTEND Urology
DX: N20.1 Calculus of ureter (principal)
CPT/HCPCS: 74018

== ENCOUNTER 2018-05-01 22:43 | Emergency (ER) | payer OTHER ==
[~2018-05-01] VITALS: Ht 182.9 cm; Wt 124.7 kg
--- NOTE | 2018-05-01 22:58 | ED GU-Male ---
General Stated Complaint: KIDNEY STENT HURTING Source: patient, family Exam Limitations: no limitations History of Present Illness Date Seen by Provider: May 01, 2018 Time Seen by Provider: 22:48 Initial Comments The patient presents to ER by private conveyance with his family and chief complaint that he had a kidney stone and went to [facility] and they placed a stent in his ureter. Since that time is not having any problems with it and when he was released Wednesday told him if it caused him any pain just posterior the stent out falling on the thread. He says today's been coughing a lot more pain and he's having difficulty with urinary incontinence. He says he bumped up against it just prior to starting to hurt. He says he doesn't thinking make his appointment on Wednesday, 2 days from now and would like a stent removed now. He did take some hydrocodone earlier about an hour or 2 prior to arrival. He denies any hematuria or clots Allergies and Home Medications Allergies Coded Allergies: No Known Drug Allergies (Unverified , 03/01/18) Home Medications Febuxostat 80 Mg Tablet, 80 MG PO DAILY, (Reported) Fenofibric Acid (Choline) 135 Mg Capsule.dr, 135 MG PO DAILY, (Reported) Hydrocodone/Acetaminophen 1 Each Tablet, 1-2 EACH PO Q6H PRN for PAIN-MODERATE Prescribed by: BAYRON CAZARES on 02/26/18 1416 Hydrocodone/Acetaminophen 1 Each Tablet, 1-2 EACH PO Q6H PRN for PAIN-MODERATE Prescribed by: RYANN RIVAS on 03/22/18 0826 Nitrofurantoin Monohyd/M-Cryst 100 Mg Capsule, 1 TAB PO BID Prescribed by: RYANN RIVAS on 03/22/18 0826 Phenazopyridine HCl 200 Mg Tablet, 200 MG PO TID Prescribed by: DAMON CASTANEDA on 03/02/18 1039 Tamsulosin HCl 0.4 Mg Cap, 0.4 MG PO DAILY Prescribed by: DAMON CASTANEDA on 03/02/18 1039 Tamsulosin HCl 0.4 Mg Cap, 0.4 MG PO DAILY Prescribed by: RYANN RIVAS on 03/22/18 0826 Triamterene/Hydrochlorothiazid 1 Each Tablet, 1 EACH PO DAILY, (Reported) Patient Home Medication List Home Medication List Reviewed: Yes Review of Systems Review of Systems Constitutional: No chills, No diaphoresis EENTM: No ear discharge, No ear pain Respiratory: No cough, No short of breath Cardiovascular: No chest pain, No edema Gastrointestinal: No abdominal pain, No nausea, No vomiting Genitourinary: denies burning, denies discharge, denies dysuria; incontinence Musculoskeletal: No back pain, No joint pain Skin: No pruritus, No rash Psychiatric/Neurological: Denies Headache, Denies Numbness, Denies Paresthesia Past Wykvuch-Lwuuud-Axlcpr Hx Patient Social History Alcohol Use: Denies Use Recreational Drug Use: No Smoking Status: Former Smoker Type Used: Smokeless Tobacco 2nd Hand Smoke Exposure: No Recent Foreign Travel: No Contact w/Someone Who Travel: No Recent Hopitalizations: No Immunizations Up To Date Date of Influenza Vaccine: Feb 07, 2018 Seasonal Allergies Seasonal Allergies: No Past Medical History Surgeries: Yes (ESWL) Appendectomy, Gallbladder, Valve Replacement Respiratory: Yes (DOESNT USE CPAP) Sleep Apnea Cardiac: Yes (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 9.0oz. 123.556855yr; 37.0 BMI Method:Stated General Appearance: WD/WN, mild distress HEENT: PERRL/EOMI, normal ENT inspection, pharynx normal Neck: non-tender, full range of motion Cardiovascular: normal peripheral pulses, regular rate, rhythm Respiratory: chest non-tender, lungs clear, normal breath sounds, no respiratory distress, no accessory muscle use Gastrointestinal: normal bowel sounds, non tender, soft Male: normal genitalia; No testicular tenderness Back: normal inspection, no CVA tenderness, no vertebral tenderness Neurologic/Psychiatric: alert, normal mood/affect, oriented x 3 Skin: normal color, warm/dry Procedures/Interventions Progress Patient was given 30 mg IM Toradol and allowed to rest for about 10 minutes. Then the 2 strings were identified and steady traction was applied and the stent was easily removed. The patient tolerated procedure well. Progress/Results/Core Measures Suspected Sepsis SIRS Temperature: Pulse: Respiratory Rate: Blood Pressure / Mean: Results/Orders My Orders Orders - NADYA FRAZIER Hydrocodone/Apap 5/325 Tablet (Lortab 5 (05/01/18 23:00) Ketorolac Injection (Toradol Injection) (05/01/18 23:00) Medications Given in ED Current Medications Medications Dose Ordered Sig/Arcenio Route Start Time Stop Time Status Last Admin Dose Admin Ketorolac Tromethamine 30 mg ONCE ONCE IVP 05/01/18 23:00 05/01/18 23:01 DC 05/01/18 23:05 30 MG Vital Signs/I&O 05/01/18 22:52 Temp 97.9 Pulse 83 Resp 17 B/P (MAP) 149/110 (123) O2 Delivery Room Air Capillary Refill : Progress Note : Time: 23:04 Progress Note We'll give him a shot of ketorolac and allow that to set in and then we'll remove the stent per his request. We'll get a UA. Departure Impression Primary Impression: Migration of ureteral stent Qualified Codes: T83.122A - Displacement of indwelling ureteral stent, initial encounter Disposition: HOME, SELF-CARE Condition: Improved Departure-Patient Inst. Decision time for Depature: 23:22 Referrals: CARMEN ABREU DO (PCP/Family) Primary Care Physician Patient Instructions: Ureteral Stent (DC) Add. Discharge Instructions: Keep your follow-up appointment with the urologist on Wednesday. NADYA FRAZIER May 01, 2018 22:58
[2018-05-01] MEDS ORDERED: HYDROcodone/APAP 5 MG/325 MG (LORTAB) TAB PO ONE (23:00)
[2018-05-01] MEDS ORDERED: KETOROLAC 30 MG/ML VIAL IVP ONE (23:00)
[2018-05-01 23:25] VITALS: BP 149/110
== END 2018-05-01 23:28 | disposition home or self-care (01) ==
LOC: EDUNIT# 22:43 → ER 22:44
DX: T83.122A Displacement of indwelling ureteral stent, initial encounter (principal); G47.30 Sleep apnea, unspecified; I10 Essential (primary) hypertension; M10.9 Gout, unspecified; Z86.010 Personal history of colon polyps; Z95.2 Presence of prosthetic heart valve; Z87.442 Personal history of urinary calculi; Z96.0 Presence of urogenital implants; Z87.891 Personal history of nicotine dependence; Z90.49 Acquired absence of other specified parts of digestive tract
CPT/HCPCS: 99284

== ENCOUNTER 2022-04-06 06:35 | Emergency (ER) | payer OTHER ==
[~2022-04-06 06:35] MED LIST changes: +ACHD5005 PO; -HYDR-3456 PO; +HYDR-3457 PO; -HYDR-3812 PO; -TAMS0.4C98 PO; +TMSL.4C PO; -WARF10TA44 PO
[2022-04-06] MEDS ORDERED: TETANUS,DIPTH,PERTUSS P/F (BOOSTRIX) 0.5 ML VIAL IM ONE (07:15)
[2022-04-06 07:48] LABS: INR 3.2 (0.8-1.4); PROTHROMBIN TIME PATIENT 33.3 SEC (12.2-14.7)
--- NOTE | 2022-04-06 08:17 | ED Upper Extremity ---
General Chief Complaint: Laceration Stated Complaint: L HAND LAC WITH CHAINSAW Nursing Triage Note: TO ED VIA POV AND AMBULATORY TO ROOM 7 WITH C/O BLEEDING FROM LAC SITE. PT STATES HE CUT LEFT RING FINGER WITH CHAINSAW YESTERDAY AND WAS SEEN AT [facility] AND HAD STITCHES PLACED. PT STATES HE THINKS HE SCRAPED HAND WHILE MOVING IN SLEEP AND THEN BLEEDING STARTED SEEPING THROUGH GAUZE AND FOAM TAPE DRSG. PT IS ON WARFARIN FOR "HEART VALVE". Source: patient Exam Limitations: no limitations History of Present Illness Date Seen by Provider: Apr 06, 2022 Time Seen by Provider: 06:59 Allergies and Home Medications Allergies Coded Allergies: No Known Drug Allergies (Unverified , 03/01/18) Patient Home Medication List Febuxostat (Uloric) 80 Mg Tablet, 80 MG PO DAILY, (Reported) Entered as Reported by: JENN BUSTILLO on 03/01/18 1238 Fenofibric Acid (Choline) (Fenofibric Acid) 135 Mg Capsule.dr, 135 MG PO DAILY, (Reported) Entered as Reported by: JENN BUSTILLO on 03/01/18 1238 Hydrocodone Bit/Acetaminophen (Lortab 5 Mg Tablet) 1 Each Tablet, 1-2 EACH PO Q6H PRN for PAIN-MODERATE Prescribed by: BAYRON CAZARES on 02/26/18 1416 Hydrocodone/Acetaminophen (Lorcet 5-325 mg Tablet) 1 Each Tablet, 1-2 EACH PO Q6H PRN for PAIN-MODERATE Prescribed by: RYANN RIVAS on 03/22/18 0826 Nitrofurantoin Monohyd/M-Cryst (Macrobid 100 mg Capsule) 100 Mg Capsule, 1 TAB PO BID Prescribed by: RYANN RIVAS on 03/22/18 0826 Phenazopyridine HCl (Pyridium) 200 Mg Tablet, 200 MG PO TID Prescribed by: DAMON CASTANEDA on 03/02/18 103 Tamsulosin HCl (Flomax) 0.4 Mg Cap, 0.4 MG PO DAILY Prescribed by: DAMON CASTANEDA on 03/02/18 1039 Tamsulosin HCl (Flomax) 0.4 Mg Cap, 0.4 MG PO DAILY Prescribed by: RYANN RIVAS on 03/22/18 0826 Triamterene/Hydrochlorothiazid (Triamterene-Hctz 37.5-25 mg Tb) 1 Each Tablet, 1 EACH PO DAILY, (Reported) Entered as Reported by: JENN BUSTILLO on 03/01/18 6814 Past Juudqkm-Rbhqqq-Dfewut Hx Patient Social History Tobacco Use?: Yes Substance use?: No Alcohol Use?: No Seasonal Allergies Seasonal Allergies: No Past Medical History Surgeries: Yes (SEVERAL ESWL'S) Appendectomy, Gallbladder, Valve Replacement Respiratory: Yes (DOESNT USE CPAP) Sleep Apnea Cardiac: Yes (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) Hypertension, Valvular Heart Disease Neurological: No Reproductive Disorders: No Sexually Transmitted Disease: No HIV/AIDS: No Kidney Stones Gastrointestinal: Yes Polyps Musculoskeletal: Yes Gout Endocrine: No Loss of Vision: Bilateral Hearing Impairment: Denies Cancer: No Psychosocial: No Integumentary: No Blood Disorders: No Adverse Reaction/Blood Tranf: No (N/A) Physical Exam Vital Signs Vital Signs - First Documented 04/06/22 06:46 Temp 36.6 Pulse 77 Resp 16 B/P (MAP) 133/93 (106) Pulse Ox 94 O2 Delivery Room Air Capillary Refill : Less Than 3 Seconds Height, Weight, BMI Height: 6'0.00" Weight: 275lbs. 9.0oz. 124.386170ec; 37.0 BMI Method:Stated Progress/Results/Core Measures Results/Orders Lab Results Laboratory Tests Test 04/06/22 07:17 Range/Units Prothrombin Time 33.3 H 12.2-14.7 SEC INR Comment 3.2 H 0.8-1.4 My Orders Orders - BAYRON PRESTON MD Protime With Inr (04/06/22 07:07) Dipht,Pertuss(Acell),Tet Adult (Boostrix (04/06/22 07:15) Medications Given in ED Current Medications Medications Dose Ordered Sig/Arcenio Route Start Time Stop Time Status Last Admin Dose Admin Diphtheria/ Tetanus/Acell Pertussis 0.5 ml ONCE ONCE IM 04/06/22 07:15 04/06/22 07:16 DC 04/06/22 07:30 0.5 ML Vital Signs/I&O 04/06/22 06:46 Temp 36.6 Pulse 77 Resp 16 B/P (MAP) 133/93 (106) Pulse Ox 94 O2 Delivery Room Air Blood Pressure Mean: 106 Departure Impression Primary Impression: Laceration of finger Qualified Codes: S61.215D - Laceration without foreign body of left ring finger without damage to nail, subsequent encounter Additional Impression: Anticoagulated Departure-Patient Inst. Referrals: CARMEN ABREU DO (PCP/Family) Primary Care Physician Patient Instructions: Laceration Repair With Stitches ED Add. Discharge Instructions: Change your dressing daily or more often if needed. If bleeding returns, apply gentle pressure and elevate above your heart for 15 to 30 minutes. If significant bleeding continues, return to the emergency room for further evaluation. Elevate your finger to the level of your heart as much as possible over the next 48 hours to avoid recurrent bleeding. Monitor your wound for signs of infection such as increasing redness, increasing swelling, puslike drainage, or fever. Return to the emergency room promptly if you notice the symptoms. Your INR was 3.2 today. Resume your regular schedule for INR monitoring with your prescribing provider. Return to care if you have any other worsening symptoms. Call with questions or concerns. Follow discharge instructions from your [facility] ER visit regarding suture removal. You may gently wash your hands and shower but do not submerge until after sutures are removed. Gradually increase range of motion in your finger to prevent stiffness from occurring. All discharge instructions reviewed with patient and/or family. Voiced understanding. BAYRON PRESTON MD Apr 06, 2022 08:17
[2022-04-06 08:23] VITALS: BP 135/88
== END 2022-04-06 08:23 | disposition home or self-care (01) ==
LOC: EDUNIT# 06:35 → ER 06:36
DX: S61.215A Laceration without foreign body of left ring finger without damage to nail, initial encounter (principal); Z79.01 Long term (current) use of anticoagulants; Z28.310 Unvaccinated for COVID-19; W29.3XXA Contact with powered garden and outdoor hand tools and machinery, initial encounter
CPT/HCPCS: 36415; 85610; 90715